=== PATIENT | female | born 1950 | race American Indian/Alaskan Native ===

== ENCOUNTER 2016-09-10 09:19 | Outpatient (CLI) | payer MEDICARE ==
--- NOTE | 2016-09-10 14:53 | Nuclear Medicine Report ---
NUCLEAR MEDICINE GASTRIC EMPTYING SCAN History: Gastroesophageal reflux disease. Findings: Anterior abdominal images were obtained for 90 minutes following ingestion of 1 mCi of technetium 99m sulfur colloid in oatmeal. Half life for gastric emptying measures 31 minutes. There is mild activity overlying the expected to position of the distal esophagus which probably represents reflux disease. Impression: Normal gastric emptying time. There is evidence for mild gastroesophageal reflux into the distal esophagus.
== END 2016-09-10 09:20 | disposition home or self-care (01) ==
LOC: NM 09:19
PROVIDERS: ATTEND Internal Medicine Gastroenterology
DX: K21.9 Gastro-esophageal reflux disease without esophagitis (principal); R14.2 Eructation; R68.81 Early satiety; Z86.19 Personal history of other infectious and parasitic diseases
CPT/HCPCS: 78264; A9541

== ENCOUNTER 2017-03-25 09:26 | Outpatient (CLI) | payer MEDICARE ==
--- NOTE | 2017-03-25 10:56 | XRay Report ---
Bilateral knees: Next History: Knee pain. Findings: Severe narrowing noted of lateral compartment of right knee joint and medial compartment of left knee joint. Also narrowing of the patellofemoral compartment right and left knee joint .Sclerotic articular surfaces with peripheral osteophytes suggestive of severe degenerative changes. Soft tissue calcification is noted at the lateral aspect of the right knee joint. No evidence of acute fracture. Impression: Severe degenerative changes right and left knee as detailed above.
== END 2017-03-25 09:27 | disposition home or self-care (01) ==
LOC: SPVIMAG 09:26
PROVIDERS: ATTEND Orthopaedic Surgery Sports Medicine
DX: M17.0 Bilateral primary osteoarthritis of knee (principal)

== ENCOUNTER 2017-11-15 06:33 | Day surgery (SDC) | payer MEDICARE ==
[2017-11-15 07:42] LABS: Basophils # (Auto) 0.1 K/mm3 (0.0-0.1); Basophils % (Auto) 1.5 % (0.0-1.8); Eosinophils # (Auto) 0.3 K/mm3 (0.0-0.4); Eosinophils % (Auto) 3.6 % (0.0-4.3); Hemoglobin 11.2 gm/dl (10.1-14.3); Lymphocytes # (Auto) 1.9 K/mm3 (1.2-5.4); Lymphocytes % (Auto) 24.5 % (13.4-35.0); Monocytes # (Auto) 0.5 K/mm3 (0.0-0.8); Monocytes % (Auto) 6.6 % (0.0-7.3)
[2017-11-15 07:58] LABS: BUN/Creatinine Ratio 15; Blood Urea Nitrogen 12 mg/dL (7-17); Calcium 8.9 mg/dL (8.4-10.2); Hemolysis Index 0
[2017-11-15 08:00] LABS: Hematocrit 34.3 % (30.3-42.9); Mean Corpuscular HGB Conc 33 % (30-34); Mean Corpuscular Hemoglobin 27 pg (28-32); Mean Corpuscular Volume 82 fl (79-97); Platelet Count 300 K/mm3 (140-440); Red Blood Count 4.17 M/mm3 (3.65-5.03); Red Cell Distribution Width 16.2 % (13.2-15.2)
[2017-11-15] MEDS ORDERED: NACL 0.9% 500 ML 500 ML IV SCH (08:00)
[2017-11-15] MEDS ORDERED: HEPARIN/NS 5000 UNIT/500ML(CATH LAB) 1,000 ML IR ONE (08:43)
[2017-11-15] MEDS ORDERED: HEPARIN 10,000 UNITS/10 ML ONE (08:47)
[2017-11-15] MEDS ORDERED: XYLOCAINE 2% INFILTRATI ONE (10:52)
[2017-11-15] MEDS: VERSED ONE ×2 (11:03→11:08)
[2017-11-15] MEDS: CALAN ONE ×2 (11:03→11:10)
[2017-11-15] MEDS: XYLOCAINE 1% 20 mL ONE ×2 (11:03→11:10)
[2017-11-15] MEDS: SUBLIMAZE ONE ×2 (11:03→11:08)
[2017-11-15] MEDS: HEPARIN 10,000 UNITS/10 ML ONE ×2 (11:04→11:10)
[2017-11-15] MEDS: NITROGLYCERIN SYRINGE 3 ML ONE ×2 (11:05→11:10)
--- NOTE | 2017-11-15 11:35 | Discharge Summary ---
Short Stay Discharge Plan Activity: advance as tolerated Weight Bearing Status: Full Weight Bearing Diet: low fat, low cholesterol, low salt, diabetic Wound: keep clean and dry Special Instructions: no heavy lifting (3 days), hold Metformin (48 hrs only) Follow up with: RENZO COTTON MD [Primary Care Provider] - 7 Days GIOVANA PALM MD [Staff Physician] - 7 Days
[2017-11-15] MEDS ORDERED: NACL 0.9% 1000 ML 1,000 ML IV SCH (12:00)
--- NOTE | 2017-11-15 13:29 | Cardiac Catherization Report ---
REASON FOR PROCEDURE: Chest pain and shortness of breath. PROCEDURES: 1. Left heart catheterization. 2. Selective left and right coronary angiography. 3. Left ventricular angiography. The patient was prepped and draped in a sterile fashion after informed consent. The right radial cath site was prepped and draped after a negative Ramo's test. The right radial artery was entered using Seldinger technique followed by placement of a 6-Thai hydrophilic sheath. A 3.5 left Elin catheter was used for left coronary angiography. 4. Right Elin was used for right coronary angiography. A pigtail catheter was used for left ventricle angiography. The catheters were removed, sheath removed, and hemostasis achieved using manual compression. The patient was returned to the postprocedure unit in stable condition. There were no complications. FINDINGS: HEMODYNAMICS: Left ventricle end diastolic pressure was 20, following coronary angiography. Ascending aortic pressure was 147/90. There was no significant pressure gradient on pullback across the aortic valve. CORONARY ANGIOGRAPHY: The left main coronary artery was angiographically normal. Left anterior descending artery and its diagonal branches were angiographically normal. A large ramus intermedius artery was angiographically normal. The circumflex artery and its obtuse marginal branches were angiographically normal. The right coronary artery was dominant and similarly angiographically normal. Left ventricle was very mildly dilated. Left ventricular systolic function was at lower limits of normal, estimated ejection fraction 45-50%. CONCLUSION: 1. Angiographically normal coronary arteries. 2. Very mild left ventricular chamber dilatation with left ventricular systolic function at the lower limits of normal, ejection fraction 45-50%. RECOMMENDATION: Risk factor modification and medical therapy. JOB# [id number] CA/NTS
[2017-11-15 15:10] VITALS: BP 150/80
== END 2017-11-15 15:30 | disposition home or self-care (01) ==
LOC: CATHLABREC 06:33
PROVIDERS: ATTEND Internal Medicine Cardiovascular Disease
DX: R06.02 Shortness of breath (principal); R94.39 Abnormal result of other cardiovascular function study; I10 Essential (primary) hypertension; E11.9 Type 2 diabetes mellitus without complications; M10.9 Gout, unspecified; G47.30 Sleep apnea, unspecified; E78.5 Hyperlipidemia, unspecified; Z82.49 Family history of ischemic heart disease and other diseases of the circulatory system; E66.9 Obesity, unspecified; Z68.41 Body mass index [BMI] 40.0-44.9, adult
CPT/HCPCS: 36415; 80048; 85025; 85610; 85730; 93005; 93010; 93458; 99156; 99157; C1894; J1644; J2250; J3010; J7030; J7040; Q9967

== ENCOUNTER 2018-11-06 09:07 | Outpatient (CLI) | payer MEDICARE ==
--- NOTE | 2018-11-06 10:53 | Ultrasound Report ---
RIGHT DIGITAL DIAGNOSTIC MAMMOGRAM with CAD: 11/06/18 09:07:00 CLINICAL: Follow-up of an upper-outer mammographic asymmetry.. COMPARISON:05/05/18 FINDINGS: Routine views plus spot magnification MLO and CC views were performed. The previously described irregular upper posterior asymmetry on MLO view is more prominent. Only a portion of it is included on a spot magnification view and it persists. No correlate is identified on CC or exaggerated CC views. This may be partially due to kyphosis and limitations in positioning of the breast. However, an irregular lower inner asymmetry is new compared to previous exams. Scattered punctate calcifications with no particularly suspicious forms. A stable oval relatively smooth mass at 11 to 12 o'clock. Ultrasound of the right breast (including all four quadrants and the retroareolar area) was performed and demonstrated multiple new solid irregular hypoechoic masses. The largest is at 10 o'clock 4 cm from the nipple and it measures 2.9 x 1.1 x 1.7 cm. A second irregular solid hypoechoic mass at 10 o'clock 5 cm from the nipple measures 1.2 x 0.5 x 0.8 cm. A third irregular solid hypoechoic mass at 10 o'clock 10 cm from the nipple measures 2.3 x 1.2 x 1.3 cm. A new irregular solid hypoechoic mass at 4 o'clock 4 cm from the nipple measures 1.0 x 1.1 x 0.7 cm and it correlates with the new mammographic focal asymmetry. A stable oval heterogeneous solid hypoechoic mass at 11 to 12 o'clock 3 cm from the nipple measures 3.5 x 1.4 x 3.6 cm. This mass has been stable mammographically for several years. Ultrasound of the right axilla demonstrated a suspicious lymph node at 10 o'clock 12 cm from the nipple. The cortex is focally thickened and measures 9 mm. IMPRESSION: Multiple highly suspicious new right breast masses in a patient with a personal history of left breast cancer.Recommend ultrasound-guided biopsy of the largest mass at 10 o'clock 4 cm from the nipple. A suspicious right axillary lymph node at 10 o'clock 12 cm from the nipple. Consider ultrasound-guided needle core biopsy of this suspicious lymph node. BI-RADS CATEGORY: 5 - - Highly Suggestive of Malignancy COMMENT: 1. Dense breast tissue, i.e., adenosis, fibrocystic changes, etc., may obscure an underlying neoplasm. 2. Approximately 10% of cancers are not detected with mammography. 3. A negative mammography report should not delay biopsy if a clinically suspicious mass is present. COMMENT: Patient follow-up letters are generated by our [employer] application.
== END 2018-11-06 09:08 | disposition home or self-care (01) ==
LOC: SPVWC 09:07
PROVIDERS: ATTEND Internal Medicine Hematology & Oncology
DX: C50.912 Malignant neoplasm of unspecified site of left female breast (principal); I10 Essential (primary) hypertension; E66.01 Morbid (severe) obesity due to excess calories; E78.00 Pure hypercholesterolemia, unspecified; J45.909 Unspecified asthma, uncomplicated; K21.9 Gastro-esophageal reflux disease without esophagitis; Z90.710 Acquired absence of both cervix and uterus

== ENCOUNTER 2018-11-14 08:09 | Outpatient (CLI) | payer MEDICARE ==
--- NOTE | 2018-11-14 10:44 | Mammography Report ---
RIGHT DIGITAL DIAGNOSTIC MAMMOGRAM: 11/14/18 08:09:00 CLINICAL: For clip placement immediately status post ultrasound biopsy. COMPARISON:11/06/18 FINDINGS: A biopsy clip is now identified at 10 o'clock. It correlates with the ultrasound finding. IMPRESSION: Concordant clip placement status post ultrasound biopsy. BI-RADS CATEGORY: 5 - - Highly Suggestive of Malignancy Pathology pending.
--- NOTE | 2018-11-14 11:11 | Ultrasound Report ---
ULTRASOUND GUIDED NEEDLE CORE BIOPSY WITH CLIP PLACEMENT RIGHT BREAST AND ULTRASOUND GUIDED NEEDLE CORE BIOPSY OF A RIGHT AXILLARY LYMPH NODE : 11/14/18 00:00:00 CLINICAL: Right breast masses and a suspicious enlarged right axillary lymph node. COMPARISON :11/06/18 FINDINGS: The procedure was explained to the patient and informed consent was obtained. Ultrasound demonstrated the previously described dominant mass at 10 o'clock 4 cm from the nipple. The skin was prepped with Betadine and anesthetized with 1% lidocaine. Ultrasound needle core biopsy was performed through a small dermatotomy using ultrasound guidance, 2% lidocaine with epinephrine for deep anesthesia and a 14-gauge Achieve biopsy device. 3 cores were obtained and placed in formalin. A localizer clip was deployed within the lesion. The skin in the axilla was prepped with Betadine and anesthetized with 1% lidocaine. Ultrasound guided needle core biopsy of the previously identified lymph node was performed through a small dermatotomy using 2% lidocaine with epinephrine for deep anesthesia and a 18-gauge Achieve biopsy device. 2 samples were obtained and placed in formalin. A clip was deployed within the lymph node. Hemostasis was achieved at both sites with minimal effort and sterile dressings were applied. The patient tolerated the procedure well and there were no apparent complications. She was discharged in good condition and was given instructions for wound care and followup. IMPRESSION: Uncomplicated ultrasound-guided needle core biopsy of a right breast mass and uncomplicated needle core biopsy of right axillary lymph node.
== END 2018-11-14 08:10 | disposition home or self-care (01) ==
LOC: SPVWC 08:09
PROVIDERS: ATTEND Internal Medicine Hematology & Oncology
DX: C50.411 Malignant neoplasm of upper-outer quadrant of right female breast (principal); I89.8 Other specified noninfective disorders of lymphatic vessels and lymph nodes; E78.00 Pure hypercholesterolemia, unspecified; I10 Essential (primary) hypertension; J45.909 Unspecified asthma, uncomplicated; G47.30 Sleep apnea, unspecified; K21.9 Gastro-esophageal reflux disease without esophagitis; M19.90 Unspecified osteoarthritis, unspecified site; E66.01 Morbid (severe) obesity due to excess calories; Z79.899 Other long term (current) drug therapy; Z98.890 Other specified postprocedural states; Z90.12 Acquired absence of left breast and nipple
CPT/HCPCS: 19083; 38505; 76942; 77065; 88305; 88342; A4648; 88341; 88368

== ENCOUNTER 2019-03-06 08:05 | Outpatient (CLI) | payer MEDICARE ==
--- NOTE | 2019-03-06 09:38 | Mammography Report ---
RIGHT DIGITAL DIAGNOSTIC MAMMOGRAM WITH CAD -- 03/06/2019 RIGHT COMPLETE BREAST ULTRASOUND INDICATION: Right breast cancer status post chemotherapy. TECHNIQUE: Digital right mammographic imaging was performed. Complete ultrasound of all four (4) akua drants was performed. This examination was interpreted with the benefit of Computer-Aided Detection ( CAD) analysis. COMPARISON: 11/06/2018 FINDINGS: Breast Density: The breast is heterogeneously dense, which may obscure small masses. MAMMOGRAPHIC FINDINGS: A biopsy clip in the upper outer quadrant correlates with the known cancer and there is no distinct mass at the clip. An oval partially circumscribed mass at 12:00 with indistinct margins correlates with a mammographic mass which has been stable since 2014. ULTRASOUND FINDINGS: Complete sonographic evaluation of all 4 quadrants and retroareolar region was p erformed. Irregular solid heterogeneous hypoechoic mass at 10:00 5 cm from the nipple contains a bi opsy clip and correlates with the known cancer. It measures 2.3 x 0.8 x 1.5 cm compared to 2.9 x 1.1 x 1.7 cm on the last exam. An oval solid heterogeneous hypoechoic mass at 11-12 o'clock 3 cm from the nipple measures 3.4 x 1.3 x 2.7 cm compared to 3.5 x 1.4 x 3.6 cm. A benign cyst at 7:00 3 cm from t he nipple measures 7 x 5 x 7 mm. Some of the right axilla demonstrated no suspicious lymph nodes. The largest lymph node measures 1.3 cm and the cortex measures 3.8 mm. IMPRESSION: Partial response to chemotherapy and a 2.3 cm residual mass at 10:00 5 cm from the nipple . Follow up recommendation: Clinical exam BI-RADS Category 6: Known Biopsy-Proven Malignancy. A "normal" or negative report should not discourage follow up or biopsy of a clinically significant f inding. A written summary of these findings will be mailed to the patient. The patient will be entered into a mammography reporting system which will generate a reminder letter for the patient's next appointmen t at the appropriate interval. According to the [employer], yearly mammograms are recommended starting at age 40 and continuing as long as a woman is in good health. Breast MRI is recommended for women with an darlyn roximately 20-25% or greater lifetime risk of breast cancer, including women with a strong family his tory of breast or ovarian cancer and women who have been treated for Hodgkin's disease. Signer Name: Joselito Conrad MD Signed: 03/06/2019 9:34 AM Workstation Name: [id number]
== END 2019-03-06 08:06 | disposition home or self-care (01) ==
LOC: SPVWC 08:05
PROVIDERS: ATTEND Surgery
DX: N63.11 Unspecified lump in the right breast, upper outer quadrant (principal); E78.00 Pure hypercholesterolemia, unspecified; I10 Essential (primary) hypertension; J45.909 Unspecified asthma, uncomplicated; K21.9 Gastro-esophageal reflux disease without esophagitis; Z90.710 Acquired absence of both cervix and uterus

== ENCOUNTER 2019-04-04 12:22 | Observation (INO) | payer MEDICARE ==
[2019-04-02 10:48] LABS: Basophils # (Auto) 0.1 K/mm3 (0.0-0.1); Basophils % (Auto) 1.3 % (0.0-1.8); Eosinophils # (Auto) 0.1 K/mm3 (0.0-0.4); Eosinophils % (Auto) 1.7 % (0.0-4.3); Hematocrit 27.5 % (30.3-42.9); Lymphocytes # (Auto) 1.1 K/mm3 (1.2-5.4); Mean Corpuscular HGB Conc 33 % (30-34); Mean Corpuscular Volume 82 fl (79-97); Monocytes # (Auto) 0.5 K/mm3 (0.0-0.8); Monocytes % (Auto) 6.3 % (0.0-7.3); Platelet Count 337 K/mm3 (140-440); Red Blood Count 3.34 M/mm3 (3.65-5.03)
[2019-04-02 10:57] LABS: Red Cell Distribution Width 21.9 % (13.2-15.2)
--- NOTE | 2019-04-02 11:14 | Anesthesia Consultation ---
Anesthesia Consult and Med Hx Date of service: 04/02/19 - Airway Anesthetic Teeth Evaluation: Good ROM Head & Neck: Adequate Mental/Hyoid Distance: Adequate Mallampati Class: Class II Intubation Access Assessment: Good - Pulmonary Exam CTA: Yes - Cardiac Exam Cardiac Exam: RRR - Pre-Operative Health Status ASA Pre-Surgery Classification: ASA3 Proposed Anesthetic Plan: General (HTN, DM, Breast CA, Asthma Recovered from cough has cardiac clearance , for PCP clearance ) - Pulmonary Hx Asthma: Yes (RESCUE INHALER, YRS SINCE LAST ATTACK) Hx Sleep Apnea: Yes - Cardiovascular System Hx Hypertension: Yes (6-7 MOS.) - Central Nervous System Hx Back Pain: Yes Hx Psychiatric Problems: No - Other Systems Hx Alcohol Use: No Hx Substance Use: No Hx Cancer: Yes Hx Obesity: Yes
--- NOTE | 2019-04-04 11:23 | Anesthesia Day of Surgery ---
Anesthesia Day of Surgery - Day of Surgery Patient Examined: Yes Patient H&P Reviewed: Yes Patient is NPO: Yes Cardiac Clearance: Yes
[~2019-04-04 12:22] MED LIST: ALBUTEROL 2.5 MG/3 ML NEBU IH NR; BUPIVACAINE-EPINEPHRINE/PF 0.25%-1:200,000 (30 ML) VIAL INFILTRATI ONE; CELECOXIB 200 MG CAP PO NR; GABAPENTIN 300 MG CAP PO NR; HYDROmorphone 1 MG/1 ML INJ IV PRN; LACTATED RINGERS 1,000 ML IV SCH; LIDOCAINE (1%) 10 MG/1 ML VIAL 20 ML MDV ONE; MIDAZOLAM 2 MG/2 ML INJ IV NR; ceFAZolin/Water 2 GM/20 ML 2 GM/20 ML SYRINGE IV NR; dexAMETHasone 4 MG/ML VIAL ONE; fentaNYL 100 MCG/2 ML INJ IV NR; fentaNYL 100 MCG/2 ML INJ IV PRN
[2019-04-04] MEDS ORDERED: LIDOCAINE MPF (2%) 20 MG/1 ML VIAL 5 ML ONE (14:13)
[2019-04-04] MEDS ORDERED: fentaNYL 100 MCG/2 ML INJ ONE ×2 (14:13→16:35)
[2019-04-04] MEDS ORDERED: PROPOFOL 200 MG/20 ML VIAL IV ONE ×2 (14:13→15:20)
[2019-04-04] MEDS ORDERED: METHYLENE BLUE 50 MG/10 ML AMP ONE (14:23)
[2019-04-04] MEDS ORDERED: SODIUM CHLORIDE P/F VIAL 10 ML 10 ML ONE (14:23)
[2019-04-04] MEDS ORDERED: dexAMETHasone 20 MG/5 ML VIAL ONE (14:54)
[2019-04-04] MEDS ORDERED: ONDANSETRON 4 MG/2 ML INJ ONE (14:54)
[2019-04-04] MEDS ORDERED: PHENYLEPHRINE/NS 1,000 MCG/10 ML SYRINGE (OR USE) IV ONE (14:54)
[2019-04-04] MEDS ORDERED: METHYLENE BLUE 50 MG/10 ML AMP IRRIGATION ONE (15:02)
[2019-04-04] MEDS ORDERED: SODIUM CHLORIDE 0.9% P/F 10 ML VIAL INFILTRATI ONE (15:02)
[2019-04-04] MEDS ORDERED: LACTATED RINGERS 1,000 ML ONE (17:27)
[2019-04-04] MEDS ORDERED: METOCLOPRAMIDE 10 MG TAB PO PRN (19:17)
[2019-04-04] MEDS ORDERED: ONDANSETRON 4 MG/2 ML INJ IV PRN (19:17)
[2019-04-04] MEDS ORDERED: ACETAMINOPHEN 325 MG TAB PO PRN (19:17)
[2019-04-04] MEDS ORDERED: diphenhydrAMINE 25 MG CAP PO PRN (19:17)
[2019-04-04] MEDS ORDERED: HYDROmorphone 2 MG TAB PO PRN (19:17)
[2019-04-04] MEDS ORDERED: oxyCODONE /ACETAMINOPHEN 5-325MG TAB PO PRN (19:17)
--- NOTE | 2019-04-04 19:19 | Operative Report ---
Operative Report Operative Report: Operative Report: Date of Service: April 04, 2019 Preoperative diagnosis: Right breast cancer of the upper outer quadrant Postoperative diagnosis: Same Procedure: Right total mastectomy with sentinel lymph node biopsy followed by ALND Surgeon: Trini Tamez M.D. Gas Welding Equipment Mechanic: Veronica Gilliam M.D. Anesthesia: Gen. Findings: Right breast clip present within right total mastectomy. 1 sentinel lymph node identified and positive for malignancy on frozen section of pathology and proceeded with right axillary lymph node dissection Complications: None Drains: x2 19 Bruneian drains Estimated blood loss: 125 cc Disposition: PACU in good condition Indications for operative procedure: This is a 68-year-old lady with newly diagnosed stage II right breast cancer of the upper outer quadrant, IDCA grade 3 [id number] ER/IN weakly positive 3 %. Patient wanted to proceed with a right mastectomy. She has a history of left breast cancer in 2007 status post mastectomy. She declined plastic surgery. She understood the role of possible adjuvant radiation therapy pending final pathology. She wished to proceed with the above procedure, patient with positive axillary lymph node prior at diagnosis. Procedure in detail: The patient was taken to the operating room and was placed supine. Gen. anesthesia was administered. The right nipple was injected with radioisotope and 1 cc of methylene blue dye mixed with 1 cc of saline. Bilateral chest and axillas were prepped and draped in the normal sterile operative fashion. Timeout was performed. Typical mastectomy incision markings were made. Known left breast cancer at 10:00 position 5 cm from the nipple with mastectomy marking including known cancer area. Ultrasound was used as well to visualize biopsy clip. Attention was taken towards the right breast. A gamma probe was inserted into the right axilla to identify the sentinel lymph node location with uptake noted. A skin incision was made with a 10 blade knife and dissection taken down to the subcutaneous tissues. First began raising of the superior flap to the level of t he clavicle superiorly and posteriorly to the pectoralis muscle. Port was noted and unharmed. Followed by raising of the medial flap to the level of the sternum and posteriorly to the pectoralis muscle. Followed by raising of the lateral flap to the level of the latissimus dorsi muscle and taken down posteriorly. The gamma probe was inserted into the axilla, the axillary fascia was opened and 1 sentinel lymph node was identified with the gamma probe that was dissected free and sent to pathology. No remaining counts were present. Lymph node was sent to pathology with findings positive for malignancy, initial findings of atypia and then additional frozen section obtained at my request given my concerns of malignancy and additional frozen section findings positive for malignancy. Then proceeded with raising of the inferior flap to the level of the inframammary fold taken posterior to the pectoralis muscle. The mastectomy/breast was removed from the pectoralis muscle without incident. The specimen was appropriately marked and sent to radiology with findings of breast clip present and sent to pathology. Attention was then taken towards the right axilla. First began opening of the ax illary fascia further. The lattismus dorsi muscle was identified and followed superiorly. Then proceeded with identification of the axillary vein followed by identification of the thoracodorsal bundle and long thoracic nerve. Axillary lymph nodes were then removed from the above boundaries with the aid of the bovie cautery in a sweeping-like motion and then sent to pathology. Axillary lymph nodes from level I and II were removed. Both nerves were identified and unharmed. 2 lymph nodes were adherent to the lateral aspect of the thoracodorsal bundle that were dissected free and nerve unharm.The chest wall was irrigated and suctioned. Hemostasis was obtained. 2 19 persian drains were placed. The subcutaneous tissues were approximated and closed using interrupted 3-0 Vicryl and the skin closed using running 4-0 Monocryl and dermabond. She tolerated surgery very well and was transported to PACU in good condition.
--- NOTE | 2019-04-04 19:25 | Post Operative Note ---
Date of procedure: 04/04/19 Pre-op diagnosis: Right Breast Cancer Post-op diagnosis: same Procedure: Right total mastectomy with sentinel lymph node biopsy followed by ALND Anesthesia: DEBRA Surgeon: CAROLE DARBY Civil Attorney: SAMANTHA TIJERINA Estimated blood loss: other (125 ml) Pathology: list Specimen disposition: to lab Condition: stable Disposition: PACU
[2019-04-04] MEDS ORDERED: MORPHINE 2 MG/1 ML INJ IV PRN (19:28)
[2019-04-04] MEDS ORDERED: DEXTROSE 50% IN WATER (25GM) 50 ML SYRINGE IV PRN (19:29)
[2019-04-04] MEDS ORDERED: NON-FORMULARY EACH (Albuterol Sulfate [Proair Respiclick] 2 PUFF) IH PRN (19:29)
--- NOTE | 2019-04-04 19:29 | Short Stay Summary ---
Short Stay Documentation Date of service: 04/04/19 - History H&P: obtained from office - Allergies and Medications Current Medications: Allergies No Known Allergies Allergy (Verified 03/28/19 16:49) Home Medications Medication Instructions Recorded Confirmed Last Taken Type Cetirizine HCl [Allergy Relief] 10 mg PO DAILY 11/15/17 04/04/19 04/03/19 09:00 History Fluticasone [Flonase] 2 sprays INHALATION DAILY 11/15/17 04/04/19 03/28/19 09:00 History Lisinopril 20 mg PO BID 11/15/17 04/04/19 04/03/19 09:00 History Pantoprazole [Protonix TAB] 40 mg PO DAILY 11/15/17 04/04/19 04/03/19 09:00 History Albuterol Sulfate [Proair 2 puff IH Q4H PRN 03/28/19 04/04/19 03/28/19 09:00 History Respiclick] AtorvaSTATin [Lipitor] 20 mg PO QHS 03/28/19 04/04/19 04/03/19 20:00 History Diltiazem HCl [Cardizem LA] 240 mg PO DAILY 03/28/19 04/04/19 04/04/19 07:00 History Insulin Aspart [NovoLOG Flexpen] 8 units SQ AC 03/28/19 04/04/19 04/03/19 17:00 History Insulin Detemir [Levemir Flextouch] 10 unit SQ QHS 03/28/19 04/04/19 04/03/19 20:00 History Metformin HCl [Glucophage] 1,000 mg PO BID 03/28/19 04/04/19 04/03/19 17:00 History Active Medications Acetaminophen (Tylenol) 650 mg PO Q6H PRN PRN Reason: Pain MILD(1-3)/Fever >100.5/MUNIZ Diphenhydramine HCl (Benadryl) 25 mg PO Q8H PRN PRN Reason: Itching Docusate Sodium (Colace) 100 mg PO BID FARZANA Hydromorphone HCl (Dilaudid) 2 mg PO Q6H PRN PRN Reason: Pain , Severe (7-10) Cefazolin Sodium (Ancef/Sterile Water 2 Gm/20 Ml) 2 gm in 20 mls @ 80 mls/hr IV PREOP NR; Protocol Stop: 04/04/19 23:59 Lactated Ringer's (Lactated Ringers) 1,000 mls @ 100 mls/hr IV DIRECT FARZANA Last Admin: 04/04/19 12:30 Dose: 100 mls/hr Documented by: Lactated Ringer's (Lactated Ringers) 1,000 mls @ 125 mls/hr IV DIRECT FARZANA Metoclopramide HCl (Reglan) 10 mg PO Q6H PRN PRN Reason: Nausea And Vomiting Ondansetron HCl (Zofran) 4 mg IV Q8H PRN PRN Reason: N/V unrelieved by Reglan Oxycodone/Acetaminophen (Percocet 5/325) 1 tab PO Q6H PRN PRN Reason: Pain, Moderate (4-6) Sodium Chloride (Sodium Chloride Flush Syringe 10 Ml) 10 ml IV PRN PRN PRN Reason: LINE FLUSH - Brief post op/procedure progress note Date of procedure: 04/04/19 Pre-op diagnosis: Right Breast Cancer Post-op diagnosis: same Procedure: Right total mastectomy with sentinel lymph node biopsy followed by ALND Anesthesia: DEBRA Surgeon: CAROLE DARBY Table Machine Operator: SAMANTHA TIJERINA Estimated blood loss: other (125 ml) Pathology: list Specimen disposition: to lab Condition: stable - Disposition Condition at discharge: Stable Disposition: DC-01 TO HOME OR SELFCARE Short Stay Discharge Plan Activity: no driving until cleared by PCP Weight Bearing Status: Full Weight Bearing Diet: regular Wound: per your surgeon's advice (No baths, no pools, no lakes; no sitting in standing water; no showering for 48 hours) Special Instructions: no heavy lifting Follow up with: CAROLE DARBY MD [Staff Physician] - 7 Days
[2019-04-04] MEDS ORDERED: ALBUTEROL 2.5 MG/3 ML NEBU IH PRN (19:33)
[2019-04-04] MEDS ORDERED: METOCLOPRAMIDE 10 MG/2 ML INJ IV STA (19:57)
[2019-04-04] MEDS ORDERED: LACTATED RINGERS 1,000 ML IV SCH (20:00)
[2019-04-04] MEDS ORDERED: METOCLOPRAMIDE 10 MG/2 ML INJ ONE (20:01)
--- NOTE | 2019-04-04 20:26 | Post Anesthesia Evaluation ---
- Post Anesthesia Evaluation Patient Participated: Yes Airway Patent: Yes Stable Respiratory Function: Yes Nausea/Vomiting: No Temp > 96.8F: Yes Pain Manageable: Yes Adequeate Hydration: Yes Anesthesia Complications: No
[2019-04-04] MEDS ORDERED: DOCUSATE SODIUM 100 MG CAP PO SCH (22:00)
[2019-04-04] MEDS: INSULIN LISPRO 100 UNIT/ML SUB-Q SCH (23:47)
[2019-04-05] MEDS: INSULIN LISPRO 100 UNIT/ML SUB-Q SCH (06:04)
--- NOTE | 2019-04-05 08:20 | Progress Note ---
Assessment and Plan This is a 68 year old lady with Stage II right breast cancer POD#1 Right MRM. 1. No acute events overnight. 2. Pain in good control. 3. Right chest incision healing well. 4. LISA drain education. 5. OOB to hallway. Subjective Date of service: 04/05/19 Principal diagnosis: Stage II right breast cancer Interval history: POD#1 Right MRM Objective - Constitutional Vitals: Vital Signs - 12hr 04/04/19 04/04/19 04/04/19 20:29 20:33 20:45 Temperature 98.3 F Pulse Rate 103 H Respiratory 20 Rate Blood Pressure 128/83 O2 Sat by Pulse 99 100 99 Oximetry 04/05/19 04/05/19 00:25 04:39 Temperature 98.0 F 98.5 F Pulse Rate 95 H 93 H Respiratory 20 20 Rate Blood Pressure 124/74 113/69 O2 Sat by Pulse 98 94 Oximetry General appearance: Present: no acute distress - EENT Eyes: PERRL, EOM intact ENT: hearing intact Ears: bilateral: normal - Neck Neck: supple, normal ROM - Respiratory Respiratory effort: normal - Breasts Breasts: other (right chest incision c/d/i; no hematoma; LISA drain to bulb suction) - Cardiovascular Rhythm: regular Extremities: no ischemia, pulses intact, pulses symmetrical, No edema, normal temperature, normal color, Full ROM - Gastrointestinal General gastrointestinal: Present: soft, non-tender, non-distended Rectal Exam: deferred - Genitourinary Female genitourinary: deferred - Integumentary Integumentary: clear, warm, dry - Musculoskeletal Musculoskeletal: strength equal bilaterally - Neurologic Neurologic: CNII-XII intact, moves all extremities - Psychiatric Psychiatric: appropriate mood/affect, intact judgment & insight, memory intact, cooperative - Labs CBC & Chem 7: 04/02/19 10:30 Labs: Abnormal lab results 04/04/19 04/04/19 04/04/19 Range/Units 12:25 19:45 23:38 POC Glucose 128 H 193 H 299 H (70-105) 04/05/19 04/05/19 Range/Units 06:01 06:08 POC Glucose 254 H 259 H (70-105) Medications & Allergies - Medications Allergies/Adverse Reactions: Allergies No Known Allergies Allergy (Verified 03/28/19 16:49) Home Medications: Home Medications Medication Instructions Recorded Confirmed Last Taken Type Cetirizine HCl [Allergy Relief] 10 mg PO DAILY 11/15/17 04/04/19 04/03/19 09:00 History Fluticasone [Flonase] 2 sprays INHALATION DAILY 11/15/17 04/04/19 03/28/19 09:00 History Lisinopril 20 mg PO BID 11/15/17 04/04/19 04/03/19 09:00 History Pantoprazole [Protonix TAB] 40 mg PO DAILY 11/15/17 04/04/19 04/03/19 09:00 History Albuterol Sulfate [Proair 2 puff IH Q4H PRN 03/28/19 04/04/19 03/28/19 09:00 History Respiclick] AtorvaSTATin [Lipitor] 20 mg PO QHS 03/28/19 04/04/19 04/03/19 20:00 History Diltiazem HCl [Cardizem LA] 240 mg PO DAILY 03/28/19 04/04/19 04/04/19 07:00 History Insulin Aspart [NovoLOG Flexpen] 8 units SQ AC 03/28/19 04/04/19 04/03/19 17:00 History Insulin Detemir [Levemir Flextouch] 10 unit SQ QHS 03/28/19 04/04/19 04/03/19 20:00 History Metformin HCl [Glucophage] 1,000 mg PO BID 03/28/19 04/04/19 04/03/19 17:00 History HYDROcodone/APAP 5-325 [[place] 1 each PO Q6HR PRN #25 tablet 04/05/19 Unknown Rx 5/325] Active Medications: Generic Name Dose Route Start Last Admin Trade Name Freq PRN Reason Stop Dose Admin Acetaminophen 650 mg 04/04/19 19:17 Tylenol PO Q6H PRN Pain MILD(1-3)/Fever >100.5/MUNIZ Albuterol 2.5 mg 04/04/19 19:33 Proventil IH Q4HRT PRN Shortness Of Breath Dextrose 50 ml 04/04/19 19:29 D50w (25gm) Syringe IV Q30MIN PRN Hypoglycemia Diphenhydramine HCl 25 mg 04/04/19 19:17 Benadryl PO Q8H PRN Itching Docusate Sodium 100 mg 04/04/19 22:00 04/04/19 21:30 Colace PO 100 mg BID FARZANA Administration Lactated Ringer's 1,000 mls @ 125 mls/hr 04/04/19 20:00 Lactated Ringers IV DIRECT FARZANA Insulin Human Lispro 0 unit 04/05/19 00:00 04/05/19 06:04 Humalog SUB-Q 4 unit Q6HR FARZANA Administration Protocol Metoclopramide HCl 10 mg 04/04/19 19:17 Reglan PO Q6H PRN Nausea And Vomiting Morphine Sulfate 2 mg 04/04/19 19:28 Morphine IV Q4H PRN Pain, Moderate (4-6) Ondansetron HCl 4 mg 04/04/19 19:17 Zofran IV Q8H PRN N/V unrelieved by Reglan Oxycodone/Acetaminophen 1 tab 04/04/19 19:17 Percocet 5/325 PO Q6H PRN Pain, Moderate (4-6) Sodium Chloride 10 ml 04/04/19 19:17 Sodium Chloride Flush Syringe 10 Ml IV PRN PRN LINE FLUSH
[2019-04-05 09:56] VITALS: BP 124/79
== END 2019-04-05 11:00 | disposition home or self-care (01) ==
LOC: OR 12:22 → OB 19:17
PROVIDERS: ADMIT Surgery; ATTEND Surgery
DX: C50.411 Malignant neoplasm of upper-outer quadrant of right female breast (principal); E11.9 Type 2 diabetes mellitus without complications; Z79.899 Other long term (current) drug therapy; Z85.3 Personal history of malignant neoplasm of breast; Z90.12 Acquired absence of left breast and nipple; Z79.4 Long term (current) use of insulin
CPT/HCPCS: 19303; 36415; 38525; 38792; 64450; 76098; 78800; 82962; 85025; 88305; 88307; 88309; 88331; 88342; 94760; 96372; 96374; A9541; G0378; J0690; J1100; J2250; J2370; J2405; J2704; J2765; J3010; J7120; Q9968; J1815; J2270